=== PATIENT | male | born 1985 | race Caucasian/White ===

== ENCOUNTER 2024-08-10 12:35 | Emergency (ER) | payer SELFPAY ==
[2024-08-10 12:51] VITALS: BP 155/98; PULSE 89; RESP 18; TEMP 36.6; O2SAT 98; BMI 23.6
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
[2024-08-10 13:17] VITALS: BP 130/78; PULSE 90; O2SAT 98
== END 2024-08-10 13:18 | disposition home or self-care (01) ==
PROVIDERS: Emergency Provider Physician Assistant
DX: K02.9 Dental caries, unspecified (principal); S02.5XXA Fracture of tooth (traumatic), initial encounter for closed fracture; X58.XXXA Exposure to other specified factors, initial encounter
CPT/HCPCS: 99283